=== PATIENT | male | born 1975 | race Caucasian/White ===

== ENCOUNTER 2021-05-21 12:37 | Emergency (ER) | payer SELFPAY ==
[2021-05-21 12:43] VITALS: BP 124/90; PULSE 92; RESP 16; TEMP 36.4; O2SAT 97; BMI 31.3
[2021-05-21 13:31] VITALS: BP 127/87; PULSE 81; RESP 20; O2SAT 97
--- NOTE | 2021-05-21 13:40 | W.ED.ALCOHOL ---
Documented by User: Iman Marie 05/21/21 16:56 HPI - Alcohol General: Chief Complaint: Alcohol Stated Complaint: DTs/Alcohol Time Seen by Provider: 05/21/21 13:30 History of Present Illness: MD complaint: alcohol withdrawal Last drink: Just BIRTHING NURSE Chronic alcohol use: Yes Previous visits for alcohol intoxication: No Recent trauma: No Associated symptoms: Reports involuntary movements Review of Systems General: Reports: 10 or more systems reviewed and unremarkable except in HPI and below Neuro: Reports: involuntary movements and restless legs Physical Exam Const: COMMON NORMALS: no acute distress, patient oriented x3, no limitations and alert GENERAL APPEARANCE: cooperative, anxious, disheveled and odor of alcohol detected; not well hydrated ORIENTATION/CONSCIOUSNESS: Yes awake, Yes oriented to person, Yes oriented to place and Yes oriented to time HENMT: COMMON NORMALS: normocephalic, atraumatic, external ears normal, EAC's normal, TM's normal bilaterally and Normal external nose present HEAD & SCALP: normal to inspection, normocephalic and atraumatic FACE & SINUS: normal facial exam, sinuses nontender and face symmetric NOSE: Normal external nose present, Normal nares present and No nasal discharge present EXTERNAL EAR: Yes external ears normal EXTERNAL AUDITORY CANAL: EAC's normal TYMPANIC MEMBRANE: TM's normal bilaterally MOUTH: Normal oral and palatal mucosa present, lip normal and tongue normal THROAT: posterior oropharynx normal, tonsils normal and uvula midline Eye: COMMON NORMALS: Equal, round and reactive pupils present, EOMs intact bilaterally and conjunctivae normal GENERAL EYE: appearance normal, both eyes and all related structures and normal light reflex EYELID: eyelids normal CONJUNCTIVA: Yes conjunctivae normal PUPIL: Yes Equal, round and reactive pupils present EOM: Yes EOM abnormal DIRECT OPHTHALMOSCOPY: Yes normal light reflex Neck/C-Spine: COMMON NORMALS: full ROM, no lymphadenopathy, supple, no meningeal signs, no JVD and Thyroid normal GENERAL: Yes normal visual inspection THYROID: Thyroid normal CERVICAL SPINE: Yes cervical ROM normal and Yes normal cervical lordosis Lymph: LYMPHATIC: no lymphadenopathy noted Chest: COMMONS NORMALS: normal inspection of the chest and normal palpation of entire chest wall Resp: COMMON NORMALS: normal respiratory effort, No retractions and clear to auscultation bilaterally AUSCULTATION: clear to auscultation bilaterally Cardio: COMMON NORMALS: no JVD, regular rate, regular rhythm, S1 normal heart sound present, S2 normal heart sound present, No gallops present (Cardio), No clicks present (Cardio), No murmurs present (Cardio), No rub (Cardio) and Peripheral pulses 2+ throughout RATE: regular rate RHYTHM: regular rhythm HEART SOUNDS: S1 normal heart sound present and S2 normal heart sound present PERIPHERAL PULSES: Peripheral pulses 2+ throughout GI: COMMON NORMALS: Normal to inspection, nondistended, normoactive bowel sounds present, Soft to palpation, non-tender and no masses PALPATION: Yes Soft to palpation : COMMON NORMALS: Yes no CVA tenderness BLADDER/KIDNEY EXAM: Yes no CVA tenderness Back/Pelvis: COMMON NORMALS: no CVA tenderness, thoracic and lumbar spine normal to inspection, no thoracic nor lumbar tenderness and thoraco-lumbar ROM normal Extremity: COMMON NORMALS: normal to inspection, full ROM, capillary refill normal, no joint enlargement, no clubbing, cyanosis or edema, no calf tenderness and no pedal edema GENERAL: Yes normal exam except as noted Neuro: COMMON NORMALS: patient oriented x3, moves all extremities, no focal motor deficits, no sensory deficits noted and gait normal SENSORIUM/ORIENTATION: Yes alert, Yes oriented to person, Yes oriented to place and Yes oriented to time MENINGEAL SIGNS: Yes no meningeal signs GAIT: Yes Ataxic gait present Psych: COMMON NORMALS: mental status grossly normal, Normal thought process present, cooperative, normal affect, speech normal and activity/motor behavior normal SPEECH: Yes normal speech THOUGHT PROCESS: Normal thought process present Skin: COMMON NORMALS: no rashes or lesions noted, no wounds and turgor normal GENERAL SKIN EXAM: no rashes or lesions noted and turgor normal Course ED course: Pt presents to ER for alcohol detox. He has not had a seizure but has been self medicating with shots periodically to keep from seizing. 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 He has not eaten in a day or more. He has been able to hold fluid down. Will call Dr. Palomino in [facility] to see if alcohol detox may be permissible to his unit; if not we will need to consider DC with appropriate detox measures as there is no bed availability and pt is stable at this time. Reevaluation(s): Reevaluation #1: Pt labs are back; 395 alcohol. He is resting comfortably after medication. Consulted Dr. Palomino to consider possible admission to [facility] but pt does not meet requirements. We do not have any icu beds available. We will discuss possible discharge with [facility] protocols if pt and caregiver wish-otherwise pt will need to be placed in room from [facility] to find placement. Dr. Campos aware. Time: 16:12 Reevaluation #2: Pt does not have family that can stay with him while he detoxes. We will call [facility] to see if pt meets requirements for admission. If he does not then pt will have to wait in ER until he is coherent enough to answer for himself. Time: 16:24 Vital Signs: Vital signs: Vital Signs Temperature 97.5 F L 05/21/21 12:43 Pulse Rate 88 05/21/21 20:25 Respiratory Rate 18 05/21/21 20:25 Blood Pressure 105/77 05/21/21 20:25 Pulse Oximetry 99 05/21/21 20:25 MDM - Alcohol Lab Data: Labs: Lab Results 05/21/21 05/21/21 05/21/21 13:35 14:10 14:10 WBC 5.6 10^3/uL 10^3/ uL (4.0-10.0) RBC 3.88 10^6/uL L 10 ^6/uL (4.1-5.3) Hgb 13.5 g/dL g/dL (11.7-16.6) Hct 38.1 % L % (42.0-52.0) MCV 98.2 fl H fl (80-94) MCH 34.8 pg H pg (28.0-34.0) MCHC 35.4 g/dL g/dL (30.0-36.0) RDW 12.5 % % (12.1-15.1) Plt Count 162 10^3/cmm 10^3 /cmm (130-400) MPV 10.0 fL fL (7.4-10.4) Neut % (Auto) 24.7 % % Lymph % (Auto) 62.1 % % [place] % (Auto) 8.5 % % Eos % (Auto) 2.7 % % Baso % (Auto) 1.8 % % Neut # (Auto) 1.39 10^3/uL L 10 ^3/uL (1.8-7.7) Lymph # (Auto) 3.5 10^3/uL 10^3/ uL (0.8-4.8) [place] # (Auto) 0.5 10^3/uL 10^3/ uL (0.2-0.9) Eos # (Auto) 0.2 10^3/uL 10^3/ uL (0.0-0.8) Baso # (Auto) 0.1 10^3/uL 10^3/ uL (0.0-0.1) Nucleated RBC % (a uto) 0 % % Nucleated RBCs # 0.0 /100WBC /100W BC Sodium 140 mmol/L mmol/L (136-145) Potassium 3.7 mmol/L mmol/L (3.5-5.1) Chloride 98 mmol/L mmol/L (98-107) Carbon Dioxide 26 mmol/L mmol/L (22-29) Anion Gap 19.7 H (5-19) BUN 8 mg/dL mg/dL (6-20) Creatinine 0.7 mg/dL mg/dL (0.7-1.2) GFR Calculation 122.5 mL/min mL/m in (90-130) Glucose 95 mg/dL mg/dL (65-115) Calculated Osmolal ity 288 mOsm/kg mOsm/ kg (285-295) Calcium 8.6 mg/dL mg/dL (8.5-10.5) Magnesium 2.1 mg/dL mg/dL (1.7-2.3) Total Bilirubin 0.4 mg/dL mg/dL (0.15-1.2) AST 97 U/L H U/L (0-40) ALT 27 U/L U/L (0-41) Alkaline Phosphata se 99 IU/L IU/L (40-130) Total Protein 6.7 g/dL g/dL (6.6-8.7) Albumin 4.0 g/dL g/dL (3.5-5.2) Globulin 2.7 g/dL g/dL (1.3-4.6) Amylase 50 U/L U/L (28-100) Lipase 68 U/L H U/L (13-60) Vitamin B12 981 pg/mL pg/mL (232-1245) TSH 1.05 uIU/mL uIU/m L (0.27-4.20) Urine Opiates Scre en Negative ng/mL ng /mL (Negative) Ur Barbiturates Sc reen Negative ng/mL ng /mL (Negative) Ur Phencyclidine S crn Negative ng/mL ng /mL (Negative) Ur Amphetamines Sc reen Negative ng/mL ng /mL (Negative) U Benzodiazepines Scrn Negative ng/mL ng /mL (Negative) Urine Cocaine Scre en Negative ng/mL ng /mL (Negative) U Marijuana (THC) Screen Negative ng/mL ng /mL (Negative) Ethyl Alcohol 05/21/21 14:10 WBC RBC Hgb Hct MCV MCH MCHC RDW Plt Count MPV Neut % (Auto) Lymph % (Auto) [place] % (Auto) Eos % (Auto) Baso % (Auto) Neut # (Auto) Lymph # (Auto) [place] # (Auto) Eos # (Auto) Baso # (Auto) Nucleated RBC % (a uto) Nucleated RBCs # Sodium Potassium Chloride Carbon Dioxide Anion Gap BUN Creatinine GFR Calculation Glucose Calculated Osmolal ity Calcium Magnesium Total Bilirubin AST ALT Alkaline Phosphata se Total Protein Albumin Globulin Amylase Lipase Vitamin B12 TSH Urine Opiates Scre en Ur Barbiturates Sc reen Ur Phencyclidine S crn Ur Amphetamines Sc reen U Benzodiazepines Scrn Urine Cocaine Scre en U Marijuana (THC) Screen Ethyl Alcohol 395 mg/dL H* mg/d L (0-10) Discharge Plan Discharge Patient Disposition: Home Clinical Impression: Alcoholic intoxication Qualifiers: Complication of substance-induced condition: uncomplicated Qualified Code(s): F10.920 - Alcohol use, unspecified with intoxication, uncomplicated Condition: Stable Discharge Orders: Discharge ED (Routine); Ordered 05/21/21 Ordered By: Ronal Quan Discharge Diet: Advance as tolerated Discharge Activity: Resume usual activity Patient Instructions: Alcohol Intoxication (ED) Sign Out Sign Out Data: Patient Sign Out occurred on 05/21/21 at 17:46. Patient's care was discussed, and care was transferred from to Zachary Campos DO. Coding Level of Care Code ED Ethylbenzene Oxidizer for g Fwd Exam Comprehensive Documented by User: Ronal Quan MD 05/21/21 20:50 HPI - Alcohol General: Chief Complaint: Alcohol Stated Complaint: DTs/Alcohol Time Seen by Provider: 05/21/21 13:30 Course Vital Signs: Vital signs: Vital Signs Temperature 97.5 F L 05/21/21 12:43 Pulse Rate 88 05/21/21 20:25 Respiratory Rate 18 05/21/21 20:25 Blood Pressure 105/77 05/21/21 20:25 Pulse Oximetry 99 05/21/21 20:25 MDM - Alcohol MDM Narrative: Medical decision making narrative: Took patient over from Dr. Gaspar patient is ambulatory stable for discharge patient's discharge to family member here. Lab Data: Labs: Lab Results 05/21/21 05/21/21 05/21/21 13:35 14:10 14:10 WBC 5.6 10^3/uL 10^3/ uL (4.0-10.0) RBC 3.88 10^6/uL L 10 ^6/uL (4.1-5.3) Hgb 13.5 g/dL g/dL (11.7-16.6) Hct 38.1 % L % (42.0-52.0) MCV 98.2 fl H fl (80-94) MCH 34.8 pg H pg (28.0-34.0) MCHC 35.4 g/dL g/dL (30.0-36.0) RDW 12.5 % % (12.1-15.1) Plt Count 162 10^3/cmm 10^3 /cmm (130-400) MPV 10.0 fL fL (7.4-10.4) Neut % (Auto) 24.7 % % Lymph % (Auto) 62.1 % % [place] % (Auto) 8.5 % % Eos % (Auto) 2.7 % % Baso % (Auto) 1.8 % % Neut # (Auto) 1.39 10^3/uL L 10 ^3/uL (1.8-7.7) Lymph # (Auto) 3.5 10^3/uL 10^3/ uL (0.8-4.8) [place] # (Auto) 0.5 10^3/uL 10^3/ uL (0.2-0.9) Eos # (Auto) 0.2 10^3/uL 10^3/ uL (0.0-0.8) Baso # (Auto) 0.1 10^3/uL 10^3/ uL (0.0-0.1) Nucleated RBC % (a uto) 0 % % Nucleated RBCs # 0.0 /100WBC /100W BC Sodium 140 mmol/L mmol/L (136-145) Potassium 3.7 mmol/L mmol/L (3.5-5.1) Chloride 98 mmol/L mmol/L (98-107) Carbon Dioxide 26 mmol/L mmol/L (22-29) Anion Gap 19.7 H (5-19) BUN 8 mg/dL mg/dL (6-20) Creatinine 0.7 mg/dL mg/dL (0.7-1.2) GFR Calculation 122.5 mL/min mL/m in (90-130) Glucose 95 mg/dL mg/dL (65-115) Calculated Osmolal ity 288 mOsm/kg mOsm/ kg (285-295) Calcium 8.6 mg/dL mg/dL (8.5-10.5) Magnesium 2.1 mg/dL mg/dL (1.7-2.3) Total Bilirubin 0.4 mg/dL mg/dL (0.15-1.2) AST 97 U/L H U/L (0-40) ALT 27 U/L U/L (0-41) Alkaline Phosphata se 99 IU/L IU/L (40-130) Total Protein 6.7 g/dL g/dL (6.6-8.7) Albumin 4.0 g/dL g/dL (3.5-5.2) Globulin 2.7 g/dL g/dL (1.3-4.6) Amylase 50 U/L U/L (28-100) Lipase 68 U/L H U/L (13-60) Vitamin B12 981 pg/mL pg/mL (232-1245) TSH 1.05 uIU/mL uIU/m L (0.27-4.20) Urine Opiates Scre en Negative ng/mL ng /mL (Negative) Ur Barbiturates Sc reen Negative ng/mL ng /mL (Negative) Ur Phencyclidine S crn Negative ng/mL ng /mL (Negative) Ur Amphetamines Sc reen Negative ng/mL ng /mL (Negative) U Benzodiazepines Scrn Negative ng/mL ng /mL (Negative) Urine Cocaine Scre en Negative ng/mL ng /mL (Negative) U Marijuana (THC) Screen Negative ng/mL ng /mL (Negative) Ethyl Alcohol 05/21/21 14:10 WBC RBC Hgb Hct MCV MCH MCHC RDW Plt Count MPV Neut % (Auto) Lymph % (Auto) [place] % (Auto) Eos % (Auto) Baso % (Auto) Neut # (Auto) Lymph # (Auto) [place] # (Auto) Eos # (Auto) Baso # (Auto) Nucleated RBC % (a uto) Nucleated RBCs # Sodium Potassium Chloride Carbon Dioxide Anion Gap BUN Creatinine GFR Calculation Glucose Calculated Osmolal ity Calcium Magnesium Total Bilirubin AST ALT Alkaline Phosphata se Total Protein Albumin Globulin Amylase Lipase Vitamin B12 TSH Urine Opiates Scre en Ur Barbiturates Sc reen Ur Phencyclidine S crn Ur Amphetamines Sc reen U Benzodiazepines Scrn Urine Cocaine Scre en U Marijuana (THC) Screen Ethyl Alcohol 395 mg/dL H* mg/d L (0-10) Discharge Plan Discharge Patient Disposition: Home Clinical Impression: Alcoholic intoxication Qualifiers: Complication of substance-induced condition: uncomplicated Qualified Code(s): F10.920 - Alcohol use, unspecified with intoxication, uncomplicated Condition: Stable Discharge Orders: Discharge ED (Routine); Ordered 05/21/21 Ordered By: Ronal Quan Discharge Diet: Advance as tolerated Discharge Activity: Resume usual activity Patient Instructions: Alcohol Intoxication (ED) Sign Out Sign Out Data: Patient Sign Out occurred on 05/21/21 at 17:46. Patient's care was discussed, and care was transferred from to Zachary Campos DO. Coding Level of Care Code ED Ethylbenzene Oxidizer for Chg Fwd Exam Comprehensive Documented by User: Zachary Campos DO 05/22/21 06:38 HPI - Alcohol General: Chief Complaint: Alcohol Stated Complaint: DTs/Alcohol Time Seen by Provider: 05/21/21 13:30 Course Vital Signs: Vital signs: Vital Signs Temperature 97.5 F L 05/21/21 12:43 Pulse Rate 88 05/21/21 20:25 Respiratory Rate 18 05/21/21 20:25 Blood Pressure 105/77 05/21/21 20:25 Pulse Oximetry 99 05/21/21 20:25 MDM - Alcohol MDM Narrative: Medical decision making narrative: Care turned over to me from midlevel. Patient is acutely intoxicated and claimed to be withdrawing and was given Ativan he has been overly sedate now. We will monitoring him until he recovers enough to be discharged. This time he is sleeping well and remained stable. At change of shift care was turned over to Dr. Quan. Lab Data: Labs: Lab Results 05/21/21 05/21/21 05/21/21 13:35 14:10 14:10 WBC 5.6 10^3/uL 10^3/ uL (4.0-10.0) RBC 3.88 10^6/uL L 10 ^6/uL (4.1-5.3) Hgb 13.5 g/dL g/dL (11.7-16.6) Hct 38.1 % L % (42.0-52.0) MCV 98.2 fl H fl (80-94) MCH 34.8 pg H pg (28.0-34.0) MCHC 35.4 g/dL g/dL (30.0-36.0) RDW 12.5 % % (12.1-15.1) Plt Count 162 10^3/cmm 10^3 /cmm (130-400) MPV 10.0 fL fL (7.4-10.4) Neut % (Auto) 24.7 % % Lymph % (Auto) 62.1 % % [place] % (Auto) 8.5 % % Eos % (Auto) 2.7 % % Baso % (Auto) 1.8 % % Neut # (Auto) 1.39 10^3/uL L 10 ^3/uL (1.8-7.7) Lymph # (Auto) 3.5 10^3/uL 10^3/ uL (0.8-4.8) [place] # (Auto) 0.5 10^3/uL 10^3/ uL (0.2-0.9) Eos # (Auto) 0.2 10^3/uL 10^3/ uL (0.0-0.8) Baso # (Auto) 0.1 10^3/uL 10^3/ uL (0.0-0.1) Nucleated RBC % (a uto) 0 % % Nucleated RBCs # 0.0 /100WBC /100W BC Sodium 140 mmol/L mmol/L (136-145) Potassium 3.7 mmol/L mmol/L (3.5-5.1) Chloride 98 mmol/L mmol/L (98-107) Carbon Dioxide 26 mmol/L mmol/L (22-29) Anion Gap 19.7 H (5-19) BUN 8 mg/dL mg/dL (6-20) Creatinine 0.7 mg/dL mg/dL (0.7-1.2) GFR Calculation 122.5 mL/min mL/m in (90-130) Glucose 95 mg/dL mg/dL (65-115) Calculated Osmolal ity 288 mOsm/kg mOsm/ kg (285-295) Calcium 8.6 mg/dL mg/dL (8.5-10.5) Magnesium 2.1 mg/dL mg/dL (1.7-2.3) Total Bilirubin 0.4 mg/dL mg/dL (0.15-1.2) AST 97 U/L H U/L (0-40) ALT 27 U/L U/L (0-41) Alkaline Phosphata se 99 IU/L IU/L (40-130) Total Protein 6.7 g/dL g/dL (6.6-8.7) Albumin 4.0 g/dL g/dL (3.5-5.2) Globulin 2.7 g/dL g/dL (1.3-4.6) Amylase 50 U/L U/L (28-100) Lipase 68 U/L H U/L (13-60) Vitamin B12 981 pg/mL pg/mL (232-1245) TSH 1.05 uIU/mL uIU/m L (0.27-4.20) Urine Opiates Scre en Negative ng/mL ng /mL (Negative) Ur Barbiturates Sc reen Negative ng/mL ng /mL (Negative) Ur Phencyclidine S crn Negative ng/mL ng /mL (Negative) Ur Amphetamines Sc reen Negative ng/mL ng /mL (Negative) U Benzodiazepines Scrn Negative ng/mL ng /mL (Negative) Urine Cocaine Scre en Negative ng/mL ng /mL (Negative) U Marijuana (THC) Screen Negative ng/mL ng /mL (Negative) Ethyl Alcohol 05/21/21 14:10 WBC RBC Hgb Hct MCV MCH MCHC RDW Plt Count MPV Neut % (Auto) Lymph % (Auto) [place] % (Auto) Eos % (Auto) Baso % (Auto) Neut # (Auto) Lymph # (Auto) [place] # (Auto) Eos # (Auto) Baso # (Auto) Nucleated RBC % (a uto) Nucleated RBCs # Sodium Potassium Chloride Carbon Dioxide Anion Gap BUN Creatinine GFR Calculation Glucose Calculated Osmolal ity Calcium Magnesium Total Bilirubin AST ALT Alkaline Phosphata se Total Protein Albumin Globulin Amylase Lipase Vitamin B12 TSH Urine Opiates Scre en Ur Barbiturates Sc reen Ur Phencyclidine S crn Ur Amphetamines Sc reen U Benzodiazepines Scrn Urine Cocaine Scre en U Marijuana (THC) Screen Ethyl Alcohol 395 mg/dL H* mg/d L (0-10) Discharge Plan Discharge Patient Disposition: Home Clinical Impression: Alcoholic intoxication Qualifiers: Complication of substance-induced condition: uncomplicated Qualified Code(s): F10.920 - Alcohol use, unspecified with intoxication, uncomplicated Condition: Stable Discharge Orders: Discharge ED (Routine); Ordered 05/21/21 Ordered By: Ronal Quan Discharge Diet: Advance as tolerated Discharge Activity: Resume usual activity Patient Instructions: Alcohol Intoxication (ED) Sign Out Sign Out Data: Patient Sign Out occurred on 05/21/21 at 17:46. Patient's care was discussed, and care was transferred from to Zachary Campos DO. Coding Level of Care Code ED Ethylbenzene Oxidizer for Lenka Fwoxana Exam Comprehensive
[2021-05-21 14:17] LABS: Basophils # 0.1 10^3/uL (0.0-0.1); Basophils % 1.8 %; Eosinophils # 0.2 10^3/uL (0.0-0.8); Eosinophils % 2.7 %; Hematocrit 38.1 % (42.0-52.0); Hemoglobin 13.5 g/dL (11.7-16.6); Lymphocytes # 3.5 10^3/uL (0.8-4.8); Lymphocytes % 62.1 %; Mean Corpuscular HGB Conc 35.4 g/dL (30.0-36.0); Mean Corpuscular Hemoglobin 34.8 pg (28.0-34.0); Mean Corpuscular Volume 98.2 fl (80-94); Monocytes # 0.5 10^3/uL (0.2-0.9); Monocytes % 8.5 %; Neutrophils # 1.39 10^3/uL (1.8-7.7); Neutrophils % 24.7 %; Nucleated Red Blood Cells % 0 %; Platelet Count 162 10^3/cmm (130-400); Red Blood Count 3.88 10^6/uL (4.1-5.3); Red Cell Distribution Width 12.5 % (12.1-15.1); White Blood Count 5.6 10^3/uL (4.0-10.0)
[2021-05-21] MEDS: ondansetron 2 mg/ML SDV 2 mL 4 MG IVP (14:43)
[2021-05-21] MEDS: LORazepam 2 mg/mL INJ 1 mL IVP (14:45)
[2021-05-21] MEDS: sodium chloride 0.9% 500 ML IV (14:47)
[2021-05-21 14:54] LABS: Amphetamines Screen Urine Negative (Negative); Barbiturates Screen Urine Negative (Negative); Benzodiazepines Screen Urine Negative (Negative); Cocaine Screen Urine Negative (Negative); Opiate Screen Urine Negative (Negative); PCP Screen Urine Negative (Negative); THC Screen Urine Negative (Negative)
[2021-05-21 14:57] LABS: Alanine Aminotransferase 27 U/L (0-41); Alkaline Phosphatase 99 IU/L (40-130); Amylase 50 U/L (28-100); Anion Gap 19.7 (5-19); Aspartate Amino Transferase 97 U/L (0-40); Blood Urea Nitrogen 8 mg/dL (6-20); Calcium 8.6 mg/dL (8.5-10.5); Carbon Dioxide 26 mmol/L (22-29); Chloride 98 mmol/L (98-107); Creatinine Clr Calc Pharmacy 144.6613; Globulin 2.7 g/dL (1.3-4.6); Glomerular Filtration Rate 122.5 mL/min (90-130); Glucose 95 mg/dL (65-115); Lipase 68 U/L (13-60); Magnesium 2.1 mg/dL (1.7-2.3); Osmolality Calculated 288 mOsm/kg (285-295); Potassium 3.7 mmol/L (3.5-5.1); Sodium 140 mmol/L (136-145); Thyroid Stimulating Hormone 1.05 uIU/mL (0.27-4.20); Total Bilirubin 0.4 mg/dL (0.15-1.2); Total Protein 6.7 g/dL (6.6-8.7); Vitamin B12 981 pg/mL (232-1245)
[2021-05-21 15:17] LABS: Alcohol Level 395 mg/dL (0-10)
--- NOTE | 2021-05-21 19:43 | PC.NURSE ---
patient reports recieved
[2021-05-21 20:25] VITALS: BP 105/77; PULSE 88; RESP 18; O2SAT 99
--- NOTE | 2021-05-21 20:27 | PC.NURSE ---
adult female states concern for admission to alcohol rehab. states does not know what she will do with him at home. states patient has been thrashing and patient states does not feel stable to walk. family concern for care at home.
== END 2021-05-21 20:47 | disposition home or self-care (01) ==
PROVIDERS: Nurse Practitioner Family; Emergency Provider Emergency Medicine
DX: F10.920 Alcohol use, unspecified with intoxication, uncomplicated (principal); Y90.8 Blood alcohol level of 240 mg/100 ml or more
CPT/HCPCS: 80053; 80306; 80307; 82150; 82607; 83690; 83735; 84443; 85025; 96361; 96374; 96375; 99284; 99291; 99292; J2060; J2405; J3411; J7040